=== PATIENT | female | born 1970 | race Caucasian/White ===

== ENCOUNTER 2017-07-21 12:17 | Day surgery (SDC) | payer BC, OTHER ==
[~2017-07-21] VITALS: Ht 165.1 cm; Wt 61.6 kg
[~2017-07-21 12:17] MED LIST: BUPIVACAINE/PF 0.5% ONE; EPINEPHRINE 1 MG/ML, 1ML ONE; LIDOCAINE 1%, 50ML ONE
[2017-07-21] MEDS ORDERED: ACETAMINOPHEN 500 MG TABLET ONE (12:47)
[2017-07-21] MEDS ORDERED: ONDANSETRON ODT 8 MG ONE (12:48)
[2017-07-21] MEDS ORDERED: GABAPENTIN 300 MG CAPSULE ONE (12:49)
[2017-07-21] MEDS ORDERED: LACTATED RINGERS 1,000 ML IV SCH (12:52)
[2017-07-21] MEDS ORDERED: FENTANYL PF 100 MCG/2ML ONE ×2 (12:52→14:01)
[2017-07-21] MEDS ORDERED: MIDAZOLAM 1 MG/ML, 2ML ONE (12:53)
[2017-07-21] MEDS ORDERED: CALCIUM PO (12:55)
[2017-07-21] MEDS ORDERED: MULT-658 PO (12:55)
[2017-07-21] MEDS ORDERED: GLUCOSAMINE PO (12:55)
[2017-07-21] MEDS ORDERED: TUMERIC PO (12:55)
[2017-07-21] MEDS ORDERED: HYDR-3240 PO (12:55)
[2017-07-21] MEDS ORDERED: ACET325T14 PO (12:56)
[2017-07-21] MEDS ORDERED: LYSINE PO (12:56)
[2017-07-21] MEDS ORDERED: IBUP200C8 PO (12:56)
[2017-07-21] MEDS ORDERED: ONDANSETRON ODT 8 MG PO ONE (13:00)
[2017-07-21] MEDS ORDERED: ACETAMINOPHEN 500 MG TABLET PO ONE (13:00)
[2017-07-21] MEDS ORDERED: GABAPENTIN 300 MG CAPSULE PO ONE (13:00)
[2017-07-21] MEDS ORDERED: PLEASE ENTER ALLERGIES MC SCH (13:00)
[2017-07-21] MEDS ORDERED: PLEASE ENTER HEIGHT AND WEIGHT MC SCH (13:00)
[2017-07-21] MEDS ORDERED: LIDOCAINE-MPF 1%, 2ML INFIL ONE (13:00)
[2017-07-21 13:08] VITALS: BP 143/91
[2017-07-21] MEDS ORDERED: ONDANSETRON 2MG/ML, 2ML ONE (13:24)
[2017-07-21] MEDS ORDERED: CEFAZOLIN 1,000 MG ONE (13:24)
[2017-07-21] MEDS ORDERED: DEXAMETHASONE 4 MG/ML, 1ML ONE (13:24)
[2017-07-21] MEDS ORDERED: KETOROLAC 30 MG/1 ML ONE (13:24)
[2017-07-21] MEDS ORDERED: PROPOFOL 10 MG/ML, 20ML ONE (13:24)
[2017-07-21] MEDS ORDERED: IBUPROFEN 200 MG TABLET PO PRN (13:30)
[2017-07-21] MEDS ORDERED: morphine SULFATE 10 MG/ML, 1ML IV PRN (14:00)
[2017-07-21] MEDS ORDERED: PROMETHAZINE 12.5 MG SUPP PR PRN (14:00)
[2017-07-21] MEDS ORDERED: ONDANSETRON 2MG/ML, 2ML IVPush PRN (14:00)
[2017-07-21] MEDS ORDERED: hydrALAzine 20 MG/ML, 1ML IV PRN (14:00)
[2017-07-21] MEDS ORDERED: MIDAZOLAM 1 MG/ML, 2ML IV PRN (14:00)
[2017-07-21] MEDS ORDERED: DIAZEPAM 5 MG/ML, 2ML IVPush PRN (14:00)
[2017-07-21] MEDS ORDERED: ALBUTEROL/IPRATROPIUM 2.5MG/0.5MG, 3 ML NPPB PRN (14:00)
[2017-07-21] MEDS ORDERED: PROMETHAZINE 25 MG/ML, 1ML IV PRN (14:00)
[2017-07-21] MEDS ORDERED: LORazepam 2 MG/ML, 1ML IVPush PRN (14:00)
[2017-07-21] MEDS ORDERED: LABETALOL 5MG/ML, 20ML IV PRN (14:00)
[2017-07-21] MEDS ORDERED: METOCLOPRAMIDE 5 MG/ML, 2ML IV PRN (14:00)
[2017-07-21] MEDS ORDERED: OXYcodone 5 MG/5 ML ORAL.SOL UDC ONE ×2 (14:01→15:22)
[2017-07-21] MEDS: FENTANYL PF 100 MCG/2ML IV PRN ×2 (14:03→14:17)
[2017-07-21] MEDS: OXYcodone 5 MG/5 ML ORAL.SOL UDC PO PRN ×2 (14:04→15:23)
[2017-07-21] MEDS ORDERED: MEPERIDINE/PF 25MG/0.5ML ONE ×2 (14:05→14:35)
[2017-07-21] MEDS: MEPERIDINE/PF 25MG/0.5ML IVPush PRN ×2 (14:07→14:37)
== END 2017-07-21 15:48 ==
LOC: OUT 12:17
PROVIDERS: ATTEND Orthopaedic Surgery
DX: S83.281A Other tear of lateral meniscus, current injury, right knee, initial encounter (principal); X58.XXXA Exposure to other specified factors, initial encounter; Y93.89 Activity, other specified; Y92.89 Other specified places as the place of occurrence of the external cause; Y99.8 Other external cause status; Z88.1 Allergy status to other antibiotic agents; Z90.710 Acquired absence of both cervix and uterus; Z98.890 Other specified postprocedural states
CPT/HCPCS: 29881; J0171; J0690; J1100; J1885; J2175; J2250; J2704; J3010; J3490; J7120; Q0162; J2405